=== PATIENT | male | born 1980 | race African-American/Black ===

== ENCOUNTER 2019-08-06 07:37 | Day surgery (SDC) | payer OTHER ==
[2019-08-02 13:56] LABS: Basophils # (auto) 0.1 uL; Basophils % (auto) 1.1 % (0.0-2.0); Eosinophils # (auto) 0 uL; Eosinophils % (auto) 0.6 % (0.0-7.0); Lymphocytes % (auto) 39.1 % (10.0-50.0); Mean Corpuscular Hemoglobin 33.9 pg (28.0-32.0); Mean Corpuscular Hgb Conc. 34.8 g/dL (32.0-36.0); Mean Corpuscular Volume 97.6 fL (80.0-100.0); Monocytes # (auto) 0.4 uL; Monocytes % (auto) 7.7 % (0.0-12.0); Neutrophils # (auto) 2.7 uL; Neutrophils % (auto) 51.5 % (37.0-80.0); Nucleated Red Blood Cells % 0.1 %; Platelet Count (auto) 246 10^3/uL (140-450); Red Blood Cells 4.72 10^6/uL (4.5-5.90); Red Cell Distribution Width 13.8 % (11.8-14.3); White Blood Cell 5.2 10^3/uL (4.4-10.8)
[2019-08-02 14:00] LABS: Urine Bacteria NONE SEEN /hpf (None Seen); Urine Blood 1+ /uL (Negative); Urine Mucus FEW (None Seen); Urine WBC <1 /hpf (0 - 3)
[2019-08-02 14:10] LABS: INR 0.97 (0.9-1.15); Partial Thromboplastin Time 32.3 sec (23.64-32.05)
[2019-08-02 14:17] LABS: Albumin 4.1 g/dL (3.4-5.0); Calcium 9.1 mg/dL (8.5-10.1); Potassium 3.8 mmol/L (3.5-5.1)
[2019-08-02 14:19] LABS: BUN/Creatinine Ratio 10.9; Bilirubin, Total 1.4 mg/dL (0.2-1.0)
[~2019-08-06] VITALS: Ht 190.5 cm; Wt 114.3 kg
[~2019-08-06 07:37] MED LIST: LOSA-39 PO; NIFE90TA30 PO
[2019-08-06] MEDS ORDERED: ceFAZolin 1GM/50ML 50 ML IV ONE (08:41)
[2019-08-06] MEDS ORDERED: SODIUM CHLORIDE LOCK 10 ML ONE (10:17)
[2019-08-06] MEDS ORDERED: PROPOFOL 10 MG/ML 20 ML IV ONE (10:17)
[2019-08-06] MEDS ORDERED: fentaNYL CITRATE 100 MCG/2 ML VL ONE (10:17)
[2019-08-06] MEDS ORDERED: LIDOCAINE HCL 2% TOP JELLY 5ML TOP ONE (10:17)
[2019-08-06] MEDS ORDERED: MIDAZOLAM HCL 1MG/1ML-2 ML VIAL ONE (10:17)
[2019-08-06] MEDS ORDERED: LIDOCAINE 2% (LOCAL ANESTH.) PF 5ml SDV ONE (10:17)
[2019-08-06] MEDS ORDERED: MEPERIDINE HCL (25 MG/ML) 1ML VIAL ONE (10:17)
[2019-08-06] MEDS ORDERED: ONDANSETRON HCL 4 MG/2 ML VIAL ONE (10:17)
[2019-08-06] MEDS ORDERED: METOCLOPRAMIDE HCL 5MG/ml INJ 2ml VIAL IV PRN (11:00)
[2019-08-06] MEDS ORDERED: fentaNYL CITRATE 100 MCG/2 ML VL IV PRN (11:00)
[2019-08-06] MEDS ORDERED: HYDROmorphone HCL 2 MG/ML VL IV PRN (11:00)
[2019-08-06] MEDS ORDERED: KETOROLAC TROMETH 30 MG/ML 1ML VIAL IV ONE (11:00)
[2019-08-06] MEDS ORDERED: LIDOCAINE W/ EPINEPHRINE 1% 20ML VIAL ONE (11:07)
[2019-08-06 12:37] VITALS: BP 129/87
== END 2019-08-06 12:41 | disposition home or self-care (01) ==
LOC: SUR 07:37
PROVIDERS: ATTEND Urology
DX: Z30.2 Encounter for sterilization (principal); I10 Essential (primary) hypertension; Z79.899 Other long term (current) drug therapy
CPT/HCPCS: 36415; 55250; 80053; 81001; 85025; 85610; 85730; 88302; J0690; J2001; J2175; J2250; J2405; J2704; J3010

== ENCOUNTER 2021-09-13 01:09 | Emergency (ER) | payer OTHER ==
[~2021-09-13] VITALS: Ht 190.5 cm; Wt 115.7 kg
[~2021-09-13 01:09] MED LIST changes: -NIFE90TA30 PO; +NIFE90TA49 PO
[2021-09-13] MEDS ORDERED: BACITRACIN TOP OINT 1 UD PKG TOP ONE (01:45)
[2021-09-13] MEDS ORDERED: NEOMYCIN-BACITRACIN-POLYM UNITDOSE PKG TOP OINT TOP ONE (02:15)
[2021-09-13 03:03] VITALS: BP 130/83
== END 2021-09-13 03:19 | disposition home or self-care (01) ==
LOC: ER 01:10
DX: S61.210A Laceration without foreign body of right index finger without damage to nail, initial encounter (principal); Z79.899 Other long term (current) drug therapy; W25.XXXA Contact with sharp glass, initial encounter; Y93.89 Activity, other specified; Y92.89 Other specified places as the place of occurrence of the external cause; Y99.8 Other external cause status
CPT/HCPCS: 12001